=== PATIENT | female | born 1990 | race Caucasian/White ===

== ENCOUNTER 2017-04-03 10:47 | Emergency (ER) | payer MEDICAID, OTHER ==
[~2017-04-03] VITALS: Ht 157.5 cm; Wt 53.5 kg
[2017-04-03] MEDS ORDERED: vitamins (11:24)
[2017-04-03 12:38] VITALS: BP 120/64
== END 2017-04-03 12:39 | disposition left against medical advice (07) ==
LOC: ER 10:47
DX: R19.03 Right lower quadrant abdominal swelling, mass and lump (principal); R11.2 Nausea with vomiting, unspecified; Z53.21 Procedure and treatment not carried out due to patient leaving prior to being seen by health care provider

== ENCOUNTER 2017-05-08 23:02 | Emergency (ER) | payer MEDICAID ==
[~2017-05-08] VITALS: Ht 157.5 cm; Wt 54.5 kg
[~2017-05-08 23:02] MED LIST: vitamins
[2017-05-08 23:05] VITALS: BP 105/72
== END 2017-05-09 03:05 | disposition left against medical advice (07) ==
LOC: ER 23:02
DX: R20.0 Anesthesia of skin (principal); Z53.21 Procedure and treatment not carried out due to patient leaving prior to being seen by health care provider

== ENCOUNTER 2017-05-30 11:17 | Emergency (ER) | payer MEDICAID ==
[~2017-05-30] VITALS: Ht 157.5 cm; Wt 57.0 kg
[2017-05-30 12:20] VITALS: BP 99/65
== END 2017-05-30 13:34 | disposition home or self-care (01) ==
LOC: ER 11:35
DX: R06.02 Shortness of breath (principal); R52 Pain, unspecified
CPT/HCPCS: 81025; 99282

== ENCOUNTER 2021-01-05 09:34 | Emergency (ER) | payer MEDICAID ==
[~2021-01-05] VITALS: Ht 157.5 cm; Wt 54.0 kg
[2021-01-05] MEDS ORDERED: KETOROLAC 60MG/2ML VIAL IM ONE (10:00)
[2021-01-05] MEDS ORDERED: METH500T6 MT (11:00)
[2021-01-05 11:32] VITALS: BP 110/81
== END 2021-01-05 11:32 | disposition home or self-care (01) ==
LOC: ER 09:34
DX: M54.9 Dorsalgia, unspecified (principal); M25.512 Pain in left shoulder; M54.2 Cervicalgia; K21.9 Gastro-esophageal reflux disease without esophagitis; Z88.3 Allergy status to other anti-infective agents; Z88.8 Allergy status to other drugs, medicaments and biological substances
CPT/HCPCS: 81025; 96372; 99283; J1885